=== PATIENT | female | born 1940 | race Caucasian/White ===

== ENCOUNTER → 2020-02-27 10:21 | Outpatient (BNVA) | payer MEDICARE, SELFPAY | PROVIDERS: PCP Internal Medicine; Referring Provider Internal Medicine; Visit Provider Physician Assistant | DX: K21.9 Gastro-esophageal reflux disease without esophagitis (principal); Z79.899 Other long term (current) drug therapy | CPT/HCPCS: 99212; Q3014 ==

== ENCOUNTER 2020-04-07 11:34 | Outpatient (REF) | payer MEDICARE, SELFPAY ==
--- NOTE | 2020-04-07 | US_ITS ---
EXAMINATION: US THYROID CLINICAL INFORMATION: Mass/lump in neck. COMPARISON: None TECHNIQUE: Linear transducer rodriguez-scale and color Doppler examination with attention to the region of the thyroid. FINDINGS: SIZE: Measurements of the thyroid lobes and nodules are given in sagittal, anteroposterior and transverse dimensions respectively. Right Thyroid Lobe: 4.0 x 1.5 x 1.2 cm, volume 3.8 mL. Parenchyma: The gland echotexture is heterogeneous. Thyroid vascularity is normal. Left Thyroid Lobe: 4.4 x 1.7 x 1.9 cm, volume 7.4 mL. Parenchyma: The gland echotexture is heterogeneous. Thyroid vascularity is increased. Isthmus: 0.4 cm in maximum AP dimension. RIGHT THYROID LOBE: No nodules. ISTHMUS: No nodules. LEFT THYROID LOBE: There is 1 nodule seen. 1. Location: Inferior medial. Size: 2.1 x 1.6 x 2.0 cm. Nodule characteristics: Heterogeneous, mixed hypoechoic and isoechoic echotexture, smooth margins, no internal calcification, with prominent vascular flow in the nodule. NODES: No lymphadenopathy is seen in the tissue surrounding the thyroid gland. US/US thyroid IMPRESSION: 2.1 cm heterogeneous nodule in the left thyroid lobe, with prominent internal vascular flow. Clinically correlate, correlate with prior imaging if available. Consider further evaluation with FNA/biopsy. This nodule would be amenable to ultrasound-guided biopsy as clinically warranted. Although there is some variation in the management of thyroid nodules, these are the latest recommendations that our department has adopted in collaboration with local thyroid specialists. [facility] THYROID CANCER GUIDELINES (2016) RECOMMENDATIONS: SUSPICION: MALIGNANCY RECOMMENDATIONS: RISK: FINE NEEDLE ASPIRATION (FNA): High : >70-90% Recommend fine needle aspiration at >1 cm. Intermediate : 10-20% Recommended fine-needle aspiration at >1 cm. Low : 5-10% Recommend fine-needle aspiration at >1.5 cm. Very Low : <3% Consider FNA at >2 cm; observation without FNA is also a reasonable option. Benign: <1% No biopsy. IF THE NODULE DOES NOT MEET FNA CRITERIA, REPEAT ULTRASOUND GUIDELINES FOR CONSIDERATION: SUSPICION: High : Repeat ultrasound in 6-12 months. Intermediate: Repeat ultrasound in 12-24 months. Low: Repeat ultrasound in 12-24 months. Very Low: (Include spongiform and cysts) >1 cm: If ultrasound is repeated that should be >24 months. <1 cm: Does not require ultrasound followup. Tiny nodules <5 cm (Not high suspicion): No followup required. (If desire followup, then greater than 24 months). ULTRASOUND FEATURES: High Suspicion (Estimated risk of malignancy: Greater than 70-90%): Solid hypoechoic nodule or solid hypoechoic component of partially cystic nodule with one or more of the following features: Irregular margins (infiltrative, microlobulated), microcalcifications, taller than wide shape, rim calcifications with small extrusive soft tissue component, evidence of extrathyroidal extension. Intermediate suspicion (Estimated risk of malignancy: 10-20%): Hypoechoic solid nodule with smooth margins without microcalcification, extrathyroid extension, or taller than wide shape. Low suspicion (Estimated risk of malignancy: 5-10%): Isoechoic or hyperechoic solid nodule, or partially cystic nodule with eccentric solid areas, without microcalcification, irregular margin or extrathyroid extension, or taller than wide shape. Very low suspicion (Estimated risk of malignancy: Less than 3%): Spongiform are partially cystic nodules without any of the sonographic features described in low, intermediate, or high suspicion patterns. Benign (Estimated risk of malignancy: Less than 1%): Purely cystic nodules (no solid component).
== END 2020-04-07 11:35 | disposition home or self-care (01) ==
LOC: HO.US 11:34
PROVIDERS: Visit Provider Family Medicine
DX: R22.1 Localized swelling, mass and lump, neck (principal)
CPT/HCPCS: 76536

== ENCOUNTER 2020-04-08 12:39 | Outpatient (REF) | payer MEDICARE, SELFPAY | END 2020-04-08 12:40 | disposition home or self-care (01) | LOC: HO.LAB 12:39 | PROVIDERS: PCP Family Medicine; Visit Provider Internal Medicine | DX: Z20.828 Contact with and (suspected) exposure to other viral communicable diseases (principal) | CPT/HCPCS: C9803; U0003 ==

== ENCOUNTER → 2020-04-30 09:32 | Outpatient (BNVA) | payer MEDICARE, SELFPAY | PROVIDERS: PCP Family Medicine; Visit Provider Physician Assistant | DX: Z76.89 Persons encountering health services in other specified circumstances (principal) ==

== ENCOUNTER → 2020-07-21 08:51 | Outpatient (BNVA) | payer MEDICARE, SELFPAY | PROVIDERS: PCP Family Medicine; Referring Provider Family Medicine; Visit Provider Internal Medicine Endocrinology, Diabetes & Metabolism | DX: E04.1 Nontoxic single thyroid nodule (principal); E03.9 Hypothyroidism, unspecified | CPT/HCPCS: 99202 ==

== ENCOUNTER 2020-07-21 09:39 | Outpatient (REF) | payer MEDICARE, SELFPAY ==
[2020-07-21 11:02] LABS: Thyroid Stimulating Hormone 7.15 uIU/mL (0.32-4.0)
[2020-07-22 09:37] LABS: Thyroglobulin Antibodies >1000 IU/mL (< or = 1); Thyroid Peroxidase Antibodies 201 IU/mL (<9)
== END 2020-07-21 09:40 | disposition home or self-care (01) ==
LOC: HO.10HDL 09:39
PROVIDERS: Visit Provider Internal Medicine Endocrinology, Diabetes & Metabolism
DX: E04.1 Nontoxic single thyroid nodule (principal)
CPT/HCPCS: 36415; 84439; 84443; 86376; 86800

== ENCOUNTER 2020-08-14 08:59 | Outpatient (REF) | payer MEDICARE, SELFPAY ==
--- NOTE | 2020-08-14 09:39 | PM.OP ---
Brief Operative Note Date of Service: 08/14/20 Pre-op diagnosis: Left thyroid nodule Post-op diagnosis: same Procedure: This procedure was explained to the patient. Alternatives, risks and benefits were discussed. Written consent was obtained. After sterile preparation of the skin, fine-needle aspiration biopsy of left thyroid nodule size 2.1 x 1.6 x 2.0 cm was performed under direct ultrasound guidance to confirm accurate needle placement. Four passes were performed with 27 gauge needles. Sample was submitted to cytology, initial cytology reading was adequate. Two passes were dedicated for [employer] genomic sequencing guidance consultant test. Patient tolerated procedure well. Aftercare instructions were provided. Impression: uncomplicated fine-needle aspiration biopsy of left thyroid nodule under direct ultrasound guidance. Surgeon: Kareem Love MD Anesthesia: local (Lidocaine 1 % 1 ml) Estimated blood loss (mL): 0 Condition: stable Disposition: same day
--- NOTE | 2020-08-14 09:42 | PM.OP ---
Brief Operative Note Date of Service: 08/14/20 Pre-op diagnosis: Left Thyroid nodule Post-op diagnosis: same Procedure: This procedure was explained to the patient. Alternatives, risks and benefits were discussed. Written consent was obtained. After sterile preparation of the skin, fine-needle aspiration biopsy of left thyroid nodule size 2.1 x 1.6 x 2.0 cm was performed under direct ultrasound guidance to confirm accurate needle placement. Four passes were performed with 27 gauge needles. Sample was submitted to cytology, initial cytology reading was adequate. Two passes were dedicated for [employer] genomic sequencing energy efficiency specialist test. Patient tolerated procedure well. Aftercare instructions were provided. Impression: uncomplicated fine-needle aspiration biopsy of left thyroid nodule under direct ultrasound guidance. Surgeon: Kareem Love MD Anesthesia: local (Lidocaine 1 % 1 ml) Estimated blood loss (mL): 0 Condition: stable Disposition: same day
[2020-08-14] MEDS: Lidocaine HCl 1 % 20 ML VIAL 5 ML SUBCUT (10:00)
== END 2020-08-14 09:00 | disposition home or self-care (01) ==
LOC: HO.US 08:59
PROVIDERS: Visit Provider Internal Medicine Endocrinology, Diabetes & Metabolism
DX: E04.1 Nontoxic single thyroid nodule (principal)
CPT/HCPCS: 10005; 88172; 88173; 88177; 88305

== ENCOUNTER → 2020-09-05 11:24 | Outpatient (BNVA) | payer MEDICARE, SELFPAY | PROVIDERS: PCP Family Medicine; Visit Provider Internal Medicine Endocrinology, Diabetes & Metabolism | DX: E04.1 Nontoxic single thyroid nodule (principal); E03.8 Other specified hypothyroidism; E06.3 Autoimmune thyroiditis | CPT/HCPCS: 99212 ==

== ENCOUNTER 2020-09-05 12:33 | Outpatient (REF) | payer MEDICARE, SELFPAY ==
[2020-09-05 14:39] LABS: Free T4 (Free Thyroxine) 0.83 ng/dL (0.71-1.85); Thyroid Stimulating Hormone 2.22 uIU/mL (0.32-4.0)
== END 2020-09-05 12:34 | disposition home or self-care (01) ==
LOC: HO.10HDL 12:33
PROVIDERS: Visit Provider Internal Medicine Endocrinology, Diabetes & Metabolism
DX: E03.9 Hypothyroidism, unspecified (principal)
CPT/HCPCS: 36415; 84439; 84443

== ENCOUNTER 2020-10-31 08:06 | Outpatient (REF) | payer MEDICARE, SELFPAY | END 2020-10-31 08:07 | disposition home or self-care (01) | LOC: HO.HOSX 08:06 | PROVIDERS: Visit Provider Physician Assistant | DX: Z13.89 Encounter for screening for other disorder (principal) ==

== ENCOUNTER → 2020-11-17 09:19 | Outpatient (BNVA) | payer MEDICARE, SELFPAY | PROVIDERS: PCP Family Medicine; Visit Provider Internal Medicine Pulmonary Disease | DX: R06.00 Dyspnea, unspecified (principal) | CPT/HCPCS: 99202 ==

== ENCOUNTER 2020-11-20 05:32 | Outpatient (REF) | payer MEDICARE, SELFPAY ==
--- NOTE | ~2020-11-20 | XR_ITS ---
EXAMINATION: XR KNEE, RIGHT XR KNEE, LEFT XR KNEE STANDING, BILATERAL CLINICAL INFORMATION: Pain in bilateral knees. COMPARISON: None TECHNIQUE: AP bilateral knees standing. Two views each knee. FINDINGS: AP BILATERAL KNEE: There is mild reduction in medial and lateral compartments both knees with periarticular spurring in the lateral compartment right knee and medial compartment left knee. RIGHT KNEE: Two views right knee reveal decreased patellofemoral compartment joint space with periarticular spurring. No loose body seen. No abnormal joint effusion noted. LEFT KNEE: The patellofemoral compartment joint space is preserved. However, there is periarticular spurring along the medial patella. No loose bodies, fracture or bony erosive changes. No abnormal joint effusion. XR/XR knee standing BI IMPRESSION: Moderate degenerative changes tricompartment right knee. Moderate degenerative changes tricompartment left knee. No acute fracture, loose bodies or joint effusion seen in either knee.
--- NOTE | ~2020-11-20 | XR_ITS ---
EXAMINATION: XR KNEE, RIGHT XR KNEE, LEFT XR KNEE STANDING, BILATERAL CLINICAL INFORMATION: Pain in bilateral knees. COMPARISON: None TECHNIQUE: AP bilateral knees standing. Two views each knee. FINDINGS: AP BILATERAL KNEE: There is mild reduction in medial and lateral compartments both knees with periarticular spurring in the lateral compartment right knee and medial compartment left knee. RIGHT KNEE: Two views right knee reveal decreased patellofemoral compartment joint space with periarticular spurring. No loose body seen. No abnormal joint effusion noted. LEFT KNEE: The patellofemoral compartment joint space is preserved. However, there is periarticular spurring along the medial patella. No loose bodies, fracture or bony erosive changes. No abnormal joint effusion. XR/XR knee LT 2V IMPRESSION: Moderate degenerative changes tricompartment right knee. Moderate degenerative changes tricompartment left knee. No acute fracture, loose bodies or joint effusion seen in either knee.
--- NOTE | ~2020-11-20 | XR_ITS ---
EXAMINATION: XR KNEE, RIGHT XR KNEE, LEFT XR KNEE STANDING, BILATERAL CLINICAL INFORMATION: Pain in bilateral knees. COMPARISON: None TECHNIQUE: AP bilateral knees standing. Two views each knee. FINDINGS: AP BILATERAL KNEE: There is mild reduction in medial and lateral compartments both knees with periarticular spurring in the lateral compartment right knee and medial compartment left knee. RIGHT KNEE: Two views right knee reveal decreased patellofemoral compartment joint space with periarticular spurring. No loose body seen. No abnormal joint effusion noted. LEFT KNEE: The patellofemoral compartment joint space is preserved. However, there is periarticular spurring along the medial patella. No loose bodies, fracture or bony erosive changes. No abnormal joint effusion. XR/XR knee RT 2V IMPRESSION: Moderate degenerative changes tricompartment right knee. Moderate degenerative changes tricompartment left knee. No acute fracture, loose bodies or joint effusion seen in either knee.
== END 2020-11-20 05:33 | disposition home or self-care (01) ==
LOC: HO.HOSX 05:32
PROVIDERS: Visit Provider Physician Assistant
DX: M17.12 Unilateral primary osteoarthritis, left knee (principal)
CPT/HCPCS: 20610; 73560; 73565; 99202; J1040

== ENCOUNTER 2020-11-24 10:00 | Outpatient (REF) | payer MEDICARE, SELFPAY ==
--- NOTE | 2020-11-24 16:46 | PFT_ITS ---
FLOWS: FEV1 95% of predicted at 1.66 L. FVC 76% of predicted at 1.75 L. FEV1 to FVC ratio of 0.95. No bronchodilator response. LUNG VOLUMES: Total lung capacity 91% of predicted at 4.21 L. Residual volume 90% of predicted at 2.02 L. Slow vital capacity 91% of predicted at 2.19 L. Expiratory reserve volume 40% of predicted at 0.17 L. Diffusion capacity is mildly decreased, diffusion capacity adjust to normal after correction for alveolar ventilation. IMPRESSION: No obstructive or restrictive ventilatory defect. No bronchodilator response. Decreased expiratory reserve volume suggests extrathoracic restriction likely secondary to abdominal obesity. Trace Holm MD AP/MODL / [id number]
== END 2020-11-24 10:01 | disposition home or self-care (01) ==
LOC: HO.RESP 10:00
PROVIDERS: PCP Internal Medicine Geriatric Medicine; Visit Provider Internal Medicine Pulmonary Disease
DX: R06.00 Dyspnea, unspecified (principal)
CPT/HCPCS: 94060; 94727; 94729

== ENCOUNTER 2020-12-09 12:51 | Outpatient (REF) | payer MEDICARE, SELFPAY | END 2020-12-09 12:52 | disposition home or self-care (01) | LOC: HO.RESP 12:51 | PROVIDERS: PCP Internal Medicine Geriatric Medicine; Visit Provider Internal Medicine Pulmonary Disease | DX: Z13.89 Encounter for screening for other disorder (principal) ==

== ENCOUNTER 2020-12-19 12:24 | Outpatient (REF) | payer MEDICARE, SELFPAY ==
--- NOTE | ~2020-12-19 | XR_ITS ---
EXAMINATION: XR knee RT 2V, XR knee LT 2V CLINICAL INFORMATION: Reason for Exam PAIN,OA COMPARISON: None available at the time of this dictation. TECHNIQUE: Frontal lateral and obliques both sides FINDINGS: BONES: No fracture or dislocation is present. JOINTS: Narrowing of joint spaces and developed osteophytes from the edges of articular surfaces suggest degenerative osteoarthritis. 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
--- NOTE | ~2020-12-19 | XR_ITS ---
EXAMINATION: XR knee RT 2V, XR knee LT 2V CLINICAL INFORMATION: Reason for Exam PAIN,OA COMPARISON: None available at the time of this dictation. TECHNIQUE: Frontal lateral and obliques both sides FINDINGS: BONES: No fracture or dislocation is present. JOINTS: Narrowing of joint spaces and developed osteophytes from the edges of articular surfaces suggest degenerative osteoarthritis. 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
--- NOTE | ~2020-12-19 | XR_ITS ---
EXAMINATION: , AP pelvis CLINICAL INFORMATION: Pain COMPARISON: None available at the time of this dictation. TECHNIQUE: AP pelvis FINDINGS: There is no evidence of acute fracture or dislocation. There are mild degenerative arthritic changes of the hip evident by sclerotic changes of the acetabular roof and narrowing of the joint space. Mild degenerative changes of the symphysis pubis. Mild degenerative changes of the SI joints. Adjacent pubic rami are intact. Surrounding soft tissues are unremarkable. XR/XR pelvis 1-2V IMPRESSION: Mild degenerative arthritis. .
== END 2020-12-19 12:25 | disposition home or self-care (01) ==
LOC: HO.XRAY 12:24
PROVIDERS: Visit Provider Physician Assistant
DX: M46.1 Sacroiliitis, not elsewhere classified (principal); M17.0 Bilateral primary osteoarthritis of knee
CPT/HCPCS: 72170; 73560

== ENCOUNTER 2020-12-31 12:54 | Outpatient (REF) | payer MEDICARE, SELFPAY ==
--- NOTE | ~2020-12-31 | CT_ITS ---
EXAMINATION: CT CHEST WITHOUT CONTRAST CLINICAL INFORMATION: Dyspnea. COMPARISON: Previous chest x-rays most recent August 2019 TECHNIQUE: Multidetector volumetric CT imaging of the chest was done. Axial MIP volume rendering provided. Sagittal and coronal reformatted images were obtained. This CT examination was performed using dose optimization techniques as appropriate, variously including the following: *Automated exposure control *Adjustment of mA and/or kV according to patient size (this includes techniques or standardized protocols for targeted exams where dose is matched to indication/reason for exam; i.e. extremities or head) *Use of iterative reconstruction technique DLP: 173 mGy-cm FINDINGS: LUNGS: The lung volumes are low. There is a 4 mm left apical pulmonary nodule axial image 98 series 7. There is a 4 mm noncalcified right lower lobe nodule axial image 379 series 7. There is a 4 mm calcified right lower lobe nodule axial image 388 series 7. No evidence of emphysema, interstitial lung disease or bronchiectasis is seen. No endobronchial or endotracheal lesion is seen. MEDIASTINUM: The heart does not appear enlarged. There is minimal coronary artery calcification. There is no pericardial effusion. The thoracic aorta is normal in caliber but tortuous. The great vessel origins appear tortuous, as well. The origin of the brachiocephalic artery may be prominent. This measures 1.9 cm axial image 80 series 7. There are no enlarged hilar or mediastinal lymph nodes. PLEURA: There is no pleural effusion. No pleural mass or thickening. AXILLA: No chest wall mass or enlarged axillary lymph nodes. UPPER ABDOMEN: The gallbladder has been removed. There may be a 1 cm low-attenuation lesion in the upper pole of the left kidney. This is difficult to further characterize. OSSEOUS STRUCTURES: There are degenerative changes of the spine. CT/CT chest wo con IMPRESSION: Low lung volumes. Small pulmonary nodules or micronodules, the largest measuring 4 mm.
== END 2020-12-31 12:55 | disposition home or self-care (01) ==
LOC: HO.CT 12:54
PROVIDERS: Visit Provider Internal Medicine Pulmonary Disease
DX: R06.00 Dyspnea, unspecified (principal)
CPT/HCPCS: 71250

== ENCOUNTER → 2021-01-27 11:27 | Outpatient (REF) | payer MEDICARE, SELFPAY ==
--- NOTE | 2021-01-27 11:31 | CA_ITS ---
Transthoracic Echocardiogram Patient (Last, First, Middle): Татьяна Cooper L Gender: Female Date of : 1940 Age: 80 Procedure Date: 01/27/2021 Procedure Type: Transthoracic Echocardiogram Location: OP Height: 157.48 cm Weight: 93.44 kg BSA: 1.94 m2 Heart Rate: bpm BP: 118 / 80 mmHg Fabric Pattern Grader: Referring MD: Trace Holm MD Symptoms: R06.00 - Dyspnea, unspecified Study Quality: Fair ECG Rhythm: Sinus Conclusions: - The left ventricular systolic function is normal. The visually estimated ejection fraction is between 60-65%. - There is moderate septal and moderate basal asymmetric hypertrophy. - There is mild calcification of the aortic valve. Findings Left Ventricle Normal left ventricular cavity size. There is mildly increased left ventricular wall thickness. The left ventricular systolic function is normal. The visually estimated ejection fraction is between 60-65%. There is no evidence of regional wall motion abnormalities. E/E prime ratio is between 8 and 15 consistent with indeterminate filling pressures. Evidence suggests grade I (mild) diastolic dysfunction. There is moderate septal and moderate basal asymmetric hypertrophy. Right Ventricle Normal right ventricular cavity size and systolic function. Atria Both atria are normal in size. Aortic Valve The aortic valve was not well visualized. There is a normal trileaflet aortic valve. There is mild calcification of the aortic valve. There is no aortic valve stenosis. The mean gradient is 6 mmHg. There is trace (trivial) aortic valve regurgitation. Mitral Valve The mitral valve appears normal. There is no mitral valve regurgitation. There is no mitral valve stenosis. Pulmonic Valve The pulmonic valve was not well visualized. Tricuspid Valve Normal tricuspid valve structure. There is trace tricuspid valve regurgitation. The pulmonary artery systolic pressure is normal. Great Vessels The aortic annulus, sinuses of valsalva, and asc aorta are normal in size. Venous The inferior vena cava is normal in size and collapses greater than 50% with inspiration. Pericardium/Pleural There is no evidence of pericardial effusion. Prior Study Comparison No prior study available for comparison. Measurements 2D Linear Measurements IVSd: 1.43 0.6-0.9/0.6-1.0 cm LVIDd: 2.88 3.9-5.3/4.2-5.9 cm LVIDd Index: 1.48 2.4-3.2/2.2-3.1 cm/m2 LVIDs: 1.99 2.0-3.6 cm LVPWd: 1.45 0.7-1.1 cm Ao Root: 3.20 2.1-3.5 cm LA Diam: 3.80 2.7-3.8/3.0-4.0 cm LAIDs Index: 1.96 1.5-2.3 cm/m2 LV Mass: 173.90 67-162/88-224 g LV Mass Index: 89.64 43-95/49-115 g/m2 LVOT Diam: 2.00 3.0+(-)1.3 cm Mitral Valve MV Pk E: 0.71 MV PK A: 0.99 MV Decel Time: 104.00 E/A: 0.70 E'Lateral: 10.90 E'Medial: 5.33 E/E' Med: 13.30 E/E' Lat: 6.50 PHT: 30.00 MVA PHT: 7.33 Decel [place]: 6.86 Aortic Valve AoV Pk Geovanny: 1.71 AoV Mn Geovanny: 1.10 AoV VTI: 0.36 AoV Pk Grad: 12.00 Aov Mn Grad: 6.00 ALICJA Cont.VTI: 1.96 LVOT LVOT Pk Geovanny: 1.10 LVOT Mn Geovanny: 0.81 LVOT VTI: 0.23 LVOT Pk Grad: 5.00 LVOT Mn Grad: 3.00 LVOT Diam: 2.00 LVOT Area: 3.14 Diastolic Function MV Pk E: 0.71 MV Pk A: 0.99 E/A: 0.70 E'Medial: 5.33 E/E' Med: 13.30 E' Laterial: 10.90 E/E' Lat: 6.50 Right Ventricle TAPSE (mm): 24.00 Tricuspid Valve TR Pk Geovanny: 1.66 TR Pk Grad: 11.00 Great Vessels Aorta Ao Root-2D: 3.20 2.0-3.7 cm Ao Asc: 3.70 2.1-3.4 cm Pulmonary Valve PV Pk Geovanny: 1.17 Peak PV Grad: 5.00 Updated in Other Vendor System with Status of Final Pedrito Estrella MD electronically signed on 01/27/2021 4:06:41 PM with status of Final
== END ==
LOC: HO.CARD 11:27
PROVIDERS: Visit Provider Internal Medicine Pulmonary Disease
DX: R06.00 Dyspnea, unspecified (principal)
CPT/HCPCS: 93306

== ENCOUNTER → 2021-02-03 13:51 | Outpatient (BNVA) | payer MEDICARE, SELFPAY | PROVIDERS: PCP Pediatrics; Visit Provider Internal Medicine Pulmonary Disease | DX: R06.00 Dyspnea, unspecified (principal) | CPT/HCPCS: 99212 ==